=== PATIENT | male | born 1980 | race Caucasian/White ===

== ENCOUNTER 2020-09-19 11:23 | Emergency (ER) | payer BC, SELFPAY ==
[2020-09-19 11:35] VITALS: BP 122/70; PULSE 89; RESP 18; TEMP 36.7; O2SAT 100; BMI 41.8
--- NOTE | 2020-09-19 11:44 | HMH.EDUTC ---
[facility] Disposition Clinical Impression: Encounter for screening laboratory testing for COVID-19 virus Disposition: Home, Self-Care Condition on Discharge: Good Instructions: Preventing the Spread of Coronavirus Discharge Instructions Additional Instructions: *Monitor Temp, Over the counter Motrin or Tylenol as directed/as needed Tylenol every 4 hours and Motrin every 6 hours (as long as your family doctor has told you that you can take it) for fever or pain. and straight to ER if unable to lower temp less than 101.0 after medication given *Warm salt water gargles may help to soothe the throat *Throat Lozenges *Warm fluids like tea with honey may help to soothe the throat *Sleep elevated *Humidifier/Vaporizer Follow up IMMEDIATELY for new or worsening symptoms or no Noticeable improvement over the next 48-72 hours. 911 for difficulty breathing or swallowing You was tested for today for COVID19 your test result should be back later this evening, you may call back later this evening to see if your test results are back and the result You was given a handout with instructions for Self Quarantine and Self isolation for while you wait on test results and what to do if they are positive Referrals: Taylor Rashid APRN [Primary Care Provider] - As needed Forms: Work/School Release Time of Disposition: 11:46 Medical Decision Making - Alireza Inquiry Pt receiving controlled substance: No Alireza was queried for this patient: No Vital Signs: 09/19/20 11:35 Temperature 98.0 F Temperature Source Oral Pulse Rate [Radial] 89 Respiratory Rate 18 Blood Pressure [Right Arm] 122/70 Blood Pressure Mean [Right Arm] 87 Blood Pressure Source [Right Arm] Automatic Cuff Blood Pressure Position [Right Arm] Sitting 02 Sat by Pulse Oximetry 100 Oxygen Delivery Method Room Air Orders (Tests/Meds): ORDERS Category Date Time Status Covid-19 Nasal PCR ([facility]) Routine Lab 09/19/20 11:32 Ordered [facility] HPI - General Stated complaint: covid test Time Seen by Provider: 09/19/20 11:44 Mode of Arrival: Ambulatory Source of Information: Patient Limitations: No Limitations Description of Symptoms (Recalled from Triage Doc. by RN): covid test. no symptoms, no exposure HEENT Symptoms (Recalled from RN notes): No Resp Symptoms (Recalled from RN notes): No Skin Symptoms (Recalled from RN notes): No MS Symptoms (Recalled from RN notes): No Functional Status (Recalled from RN notes): wnl - History of Present Illness Provider Complaint: Patient states that he hasnt had any symptoms but wanted to get tested for COVID State that he has children at home and works in the public States that he came in today just for testing - Related Data Allergies Allergy/AdvReac Type Severity Reaction Status Date / Time No Known Allergies Allergy Unverified 11/06/17 14:09 - Worker's Comp Is this a Worker's Comp case?: No [facility] History - Hepatitis A Screen Drug use history?: No High risk sexual behaviors?: No History of sexually transmitted infection?: No Currently employed?: No Childcare worker?: No Do you have indoor plumbing?: Yes Do you have electricity?: Yes Attestation statement:: This patient has been screened for Hepatitis A risk factors. I have reviewed the patient's past medical history: Yes - Social History Alcohol Intake: never Occupational Status: employed ROS Obtained: Yes All systems reviewed & no additional complaints, Yes Systems reviewed as appropriate & no additional complaints - Constitutional Constitutional: Reports system reviewed and no additional complaints, except as docu, Denies body ache, Denies chills, Denies fever(s), Denies headache(s) - ENT Ears, Nose, Mouth, and Throat: Denies otalgia, Denies nasal congestion, Denies nasal discharge, Denies sinus pain, Denies sinus pressure, Denies sore throat - Cardiovascular Cardiovascular: Reports system reviewed and no additional complaints, except as docu - Re
[2020-09-19 12:04] VITALS: BP 122/70; PULSE 89; RESP 18; TEMP 36.7; O2SAT 100
== END 2020-09-19 12:05 | disposition home or self-care (01) ==
PROVIDERS: Emergency Provider Nurse Practitioner; PCP Nurse Practitioner Family
DX: Z20.828 Contact with and (suspected) exposure to other viral communicable diseases (principal)
CPT/HCPCS: 99201; U0003

== ENCOUNTER 2020-11-16 09:24 | Emergency (ER) | payer BC, SELFPAY ==
[2020-11-16 09:26] VITALS: BP 159/102; PULSE 68; RESP 18; TEMP 37.1; O2SAT 96; BMI 42.3
--- NOTE | 2020-11-16 09:31 | ECG_ITS ---
APPROVED REPORT Exam: Resting ECG HR:64 bpm ECG Measurements Heart Rate 64 AXES WY 196 P 22 QRSd 110 QRS -14 QT 398 T 14 QTc 410 Conclusion Normal sinus rhythm Incomplete right bundle branch block Minimal voltage criteria for LVH Late r wave progression Abnormal ECG Electronically signed by : Isidro Archer, 11/16/2020 19:52:50
--- NOTE | 2020-11-16 09:35 | HMH.EDGENADL ---
ED Disposition Clinical Impression: Diaphoresis Headache Qualifiers: Headache type: unspecified Headache chronicity pattern: acute headache Intractability: not intractable Qualified Code(s): R51.9 - Headache, unspecified Disposition: Home, Self-Care Condition on Discharge: Good Instructions: DI for Headache Additional Instructions: Additional instructions for HEADACHE: See your physician as soon as possible for further evaluation, call for appointment. Return immediately if worsening headache, vomiting, problems with vision or speech, fever, numbness or weakness of the extremities, neck pain or stiffness. Call back to the emergency department in 1 to 2 days to obtain your COVID-19 test result. Referrals: Macarena Scott APRN [Primary Care Provider] - Forms: Work/School Release - Critical Care Critical Care Time: No Attestation: On , the high probability of a clinically significant, sudden or life threatening deterioration of the following system(s) required my full and direct attention, intervention and personal management. The time I documented below is in addition to time spent performing reported procedures but includes the following listed in this critical care notation. Medical Decision Making - Alireza Inquiry Pt receiving controlled substance: No Vital Signs: 11/16/20 09:26 11/16/20 10:12 11/16/20 10:32 Temperature 98.8 F Temperature Source Oral Pulse Rate [Radial] 68 67 72 Respiratory Rate 18 18 18 Blood Pressure [Right Arm] 159/102 H 133/86 124/71 Blood Pressure Mean [Right Arm] 121 101 88 Blood Pressure Source [Right Arm] Automatic Cuff Automatic Cuff Blood Pressure Position [Right Arm] Sitting Sitting Sitting 02 Sat by Pulse Oximetry 96 96 95 Oxygen Delivery Method Room Air Room Air 11/16/20 11:38 Temperature Temperature Source Pulse Rate [Radial] 54 L Respiratory Rate 16 Blood Pressure [Right Arm] 138/88 Blood Pressure Mean [Right Arm] 104 Blood Pressure Source [Right Arm] Automatic Cuff Blood Pressure Position [Right Arm] Sitting 02 Sat by Pulse Oximetry 95 Oxygen Delivery Method - Lab Data Lab Results 11/16/20 09:40: WBC 6.9, RBC 5.17, Hgb 15.9, Hct 47.2, MCV 91.2, MCH 30.8, MCHC 33.8, RDW 13.6, Plt Count 178, MPV 8.5, Neut % (Auto) 78.8, Lymph % (Auto) 9.9 L, [place] % (Auto) 9.6 H, Eos % (Auto) 1.3, Baso % (Auto) 0.4, Neut # (Auto) 5.4, Lymph # (Auto) 0.7, [place] # (Auto) 0.7, Eos # (Auto) 0.1, Baso # (Auto) 0.0 11/16/20 09:40: Sodium 135 L, Potassium 3.9, Chloride 99, Carbon Dioxide 29, Anion Gap 10.9, BUN 10, Creatinine 0.90, Estimated Creat Clear 113, Estimated GFR 93, Est GFR ( Amer) 113, Glucose 146 H, Calcium 9.3, Total Bilirubin 0.8, AST 49, ALT 53, Alkaline Phosphatase 77, Troponin I < 0.01, Total Protein 7.2, Albumin 4.3, Globulin 2.9, Albumin/Globulin Ratio 1.5 11/16/20 10:25: Influenza Type A Ag Negative, Influenza Type B Ag Negative 11/16/20 11:10: Urine Color Yellow, Urine Appearance Clear, Urine pH 6.0, Ur Specific [place] 1.015, Urine Protein Negative, Urine Glucose (UA) Negative, Urine Ketones Negative, Urine Blood Negative, Urine Nitrate Negative, Urine Bilirubin Negative, Urine Urobilinogen 0.2, Ur Leukocyte Esterase Negative, Urine WBC 3-5, Ur Squamous Epith Cells Occasional Result diagrams: 11/16/20 09:40 11/16/20 09:40 Orders (Tests/Meds): ORDERS Category Date Time Status Covid-19 Nasal PCR Sendout P&C Stat Lab 11/16/20 10:25 Received - Radiology Data #1 Image(s): Chest Image Reviewed: Yes I reviewed the patient's radiology image Preliminary Findings: Normal/NAD - CT Data CT Scan: Head Time Received: 10:[address] Reviewed: Yes: I have viewed the radiologist's interpretation Findings Narrative: PROCEDURE: CT HEAD/BRAIN WO CON Referring Doctor: Brooks Chawla Patient Age:39Y CLINICAL INDICATION: headache severe headache but tiny eyes since this morning with nausea. Sweating. . No lesions COMPARISO
--- NOTE | 2020-11-16 09:48 | CT_ITS ---
PROCEDURE: CT HEAD/BRAIN WO CON Referring Doctor: Karthikshareekendal Brooks Patient Age:39Y CLINICAL INDICATION: headache severe headache but tiny eyes since this morning with nausea. Sweating. . No lesions COMPARISON: No exams were available for comparison TECHNIQUE: No IV contrast: Standard axial images were obtained. All CT scans at the facility use one or more dose reduction, viz: automated exposure control, ma/kV adjustment per patient size (including targeted exams where dose is matched to indication, i.e. head), or iterative reconstruction technique. FINDINGS: No acute intracranial findings. No intracranial hemorrhage. No hydrocephalus.The ventricles and basal cisterns appear clear and satisfactory. No mass or midline shift nor mass effect. No subdural or extra-axial fluid collection is evident. Posterior fossa unremarkable. Skull intact- calvarium unremarkable appearance. Nomastoid effusions. Mastoid air cells are well developed and clear. Middle ear clear. IAC's symmetric. Mild to moderate cerumen at the external auditory canal bilaterally Paranasal sinuses with only some minor mucosal thickening in ethmoid air cells. Otherwise sphenoid frontal and visualized portions of maxillary sinuses are clear. No air-fluid levels. Additionally note engorgement of nasal turbinates bilaterally with prominent deviation nasal septum to the right ... IMPRESSION: No acute intracranial findings Scant mucosal thickening ethmoid air cells.-Otherwise paranasal sinuses clear Dictated by: Gabriel Aguilar MD 11/16/2020 10:26 Gabriel Aguilar MD in [place] 11/16/2020 10:26
[2020-11-16 10:08] LABS: Chloride 99 mmol/L (98-107); Potassium 3.9 mmoL/L (3.5-5.1); Sodium 135 mmol/L (136-145)
[2020-11-16 10:09] LABS: Basophils % 0.4 % (0.1-2.0); Eosinophils # 0.1 K/mm3 (0.0-0.4); Eosinophils % 1.3 % (0.1-12.0); Hematocrit 47.2 % (42.0-52.0); Hemoglobin 15.9 g/dL (14.1-18.0); Lymphocytes # 0.7 K/mm3 (0.7-4.5); Lymphocytes % 9.9 % (10-50); Mean Corpuscular HGB Conc 33.8 g/dL (31.8-35.4); Mean Corpuscular Hemoglobin 30.8 pg (27.0-31.2); Mean Corpuscular Volume 91.2 fl (80-94); Mean Platelet Volume 8.5 fl (7.4-10.4); Monocytes # 0.7 K/mm3 (0.1-1.0); Monocytes % 9.6 % (1.7-9.3); Neutrophils # 5.4 K/mm3 (1.8-7.8); Neutrophils % 78.8 % (37.0-80.0); Platelet Count 178 K/mm3 (142-424); Red Blood Count 5.17 M/mm3 (4.60-6.20); Red Cell Distribution Width 13.6 % (11.5-17.5); White Blood Count 6.9 K/mm3 (4.8-10.8)
[2020-11-16 10:11] LABS: Alanine Aminotransferase 53 U/L (12-78); Albumin Level 4.3 g/dl (3.5-5.0); Albumin/Globulin Ratio 1.5 (1.1-1.8); Alkaline Phosphatase 77 U/L (38-126); Anion Gap 10.9 mEq/L (5-15); Aspartate Amino Transferase 49 U/L (17-59); Bilirubin,Total 0.8 mg/dl (0.2-1.3); Blood Urea Nitrogen 10 mg/dl (9-20); Calcium 9.3 mg/dl (8.4-10.2); Carbon Dioxide 29 mmol/L (22.0-30.0); Creatinine Clearance Estimated 113 mL/min (50-200); Estimated Glomerular Filt Rate 93 ml/min (>60); GFR (African American) 113 ML/MIN (>60); Globulin 2.9 g/dL (1.3-3.2); Glucose 146 mg/dl (74-100); Total Protein,Serum 7.2 g/dl (6.3-8.2)
[2020-11-16 10:12] VITALS: BP 133/86; PULSE 67; RESP 18; O2SAT 96
[2020-11-16 10:24] LABS: Troponin I < 0.01 ng/ml (0.00-0.034)
[2020-11-16 10:32] VITALS: BP 124/71; PULSE 72; RESP 18; O2SAT 95
--- NOTE | 2020-11-16 10:39 | XR_ITS ---
PROCEDURE: XR CHEST 2V Referring Doctor: Brooks Chawla Patient Age:39Y CLINICAL HISTORY: sweating chest discomfort COMPARISON: No exams were available for comparison FINDINGS: PA and lateral chest, no previous studies for comparison Lungs are well expanded and overall clear with no definitive area of infiltrate or consolidation. Upper normal markings towards right base of the within normal limits. Overall he lungs are clear without infiltrates, suspicious nodules, or pleural effusions. The cardiomediastinal silhouette and pulmonary vascularity are within normal limits. No acute bony abnormalities. Ribs and T-spine intact but IMPRESSION: Nothing definitely acute Dictated by: Gabriel Aguilar MD 11/16/2020 11:29 Gabriel Aguilar MD in [place] 11/16/2020 11:29
[2020-11-16 11:13] LABS: Microscopic, Urine URINE MICROSCOPIC (MICROSCOPIC)
[2020-11-16 11:33] LABS: Appearance,Urine Clear (Clear); Bilirubin,Urine Negative (Negative); Blood, Urine Negative (Negative); Color,Urine Yellow (Yellow); Glucose,Urine (UA) Negative (Negative); Ketones,Urine Negative (Negative); Leukocyte Esterase,Urine Negative (Negative); Nitrate,Urine Negative (Negative); Protein,Urine Negative (Negative); Specific Gravity, Urine 1.015 (1.005-1.030); Urobilinogen,Urine 0.2 EU/dl (0.2)
[2020-11-16 11:34] LABS: Squamous Epithelial Cell,Urine Occasional #/hpf (0-5)
[2020-11-16 11:38] VITALS: BP 138/88; PULSE 54; RESP 16; O2SAT 95
[2020-11-16 11:54] VITALS: BP 135/65; PULSE 72; RESP 16; TEMP 36.6; O2SAT 98
[2020-11-17 09:08] LABS: Covid-19 Nasal PCR Sendout P&C POSITIVE
== END 2020-11-16 11:56 | disposition home or self-care (01) ==
PROVIDERS: Emergency Provider Emergency Medicine; PCP Nurse Practitioner
DX: R61 Generalized hyperhidrosis (principal); R51.9 Headache, unspecified; I10 Essential (primary) hypertension; E03.9 Hypothyroidism, unspecified
CPT/HCPCS: 70450; 71046; 80053; 81001; 84484; 85025; 87275; 87276; 93005; 99284; U0004

== ENCOUNTER 2023-11-28 11:24 | Emergency (ER) | payer BC, SELFPAY ==
[2023-11-28 12:00] VITALS: BP 132/87; PULSE 66; RESP 18; TEMP 36.6; O2SAT 97; BMI 40.8
--- NOTE | 2023-11-28 12:17 | ED_ITS ---
Discharge Plan Disposition Patient Disposition: Home, Self-Care Condition: Good Prescriptions Prescriptions: New methocarbamol 500 mg tablet 500 mg PO TID PRN (Reason: muscle spasm) Qty: 15 0RF No Action metoprolol succinate 50 MG tablet extended release 24 hr 50 mg PO DAILY levothyroxine 25 MCG tablet 25 mcg PO DAILY buprenorphine-naloxone 8-2 mg tablet, sublingual 2 tab SUBLINGUAL DAILY Referrals Follow up/Referrals: Macarena Scott APRN [Primary Care Provider] - See instructions Activity Restrictions/Add. Instructions Additional Instructions/Restrictions: *Over the counter Ibuprofen hortencia 6 hours with meal as needed for pain/inflammation *Not additional anti-inflammatory like motrin, aleve, advil with the above amount of ibuprofen. You can still take Tylenol every 4 hours as needed if you need something else for pain *Ice 20 minutes every 2 hours for the first 48 hours after the initial injury followed by moist heat every 20 minutes 3-4 times a day to affected area *Muscle relaxer every 8 hours as needed for muscle spasms but remember, it WILL cause drowsiness You cannot take it and drive, operate machinery Work or care for small children. *Keep this area active, no movement leads to more stiffness, However take it easy and avoid heavy lifting pushing or pulling *Follow up with you family doctor if no improvement for further treatment Clinical Impressions Clinical Impression: Low back pain Qualifiers: Chronicity: unspecified Back pain laterality: right Sciatica presence: without sciatica Qualified Code(s): M54.50 - Low back pain, unspecified Stand Alone Forms Stand Alone Forms: Work/School Release Instructions Patient Instructions: DI for Low Back Pain, Low Back Pain Discharge ED Provider: Cindy Ballard [facility] General Stated complaint: right back pain Time Seen by Provider: 11/28/23 12:17 History of Present Illness Provider Complaint: Patient states that he has been having achy like pain in his right lower back for a couple weeks that is worse with movement at times States that he does do alot of heavy lifting at work not sure if he may have pulled something Denies radiation of pain Denies urinary symptoms and denies loss of control of bowel or bladder Related Data Home Medications Medication Instructions Recorded Confirmed levothyroxine 25 mcg tablet 25 mcg PO DAILY unknown 11/16/20 11/28/23 metoprolol succinate 50 mg 50 mg PO DAILY Hypertension 11/16/20 11/28/23 tablet,extended release 24 hr buprenorphine 8 mg-naloxone 2 mg 2 tab sublingual DAILY addicition 11/28/23 11/28/23 sublingual tablet Previous Rx's Medication Instructions Recorded methocarbamol 500 mg tablet 500 mg PO TID PRN muscle spasm #15 11/28/23 tabs Allergies Allergy/AdvReac Type Severity Reaction Status Date / Time No Known Allergies Allergy Verified 11/28/23 12:23 [facility] Disclaimer: The information contained in this section may have been updated after the patient was seen, as this information can be updated by other users. Social History Smoking Status: Unknown if ever smoked alcohol intake: never current occupational status: employed Travel in the last 8 weeks: None ROS Obtained: Yes All systems reviewed & no additional complaints except as documented and Yes Systems reviewed as appropriate & no additional complaints except as documented Constitutional Constitutional: Reports system reviewed and no additional complaints, except as documented, Reports as per HPI and Denies fever(s) ENT Ears, Nose, Mouth, and Throat: Reports system reviewed and no additional complaints, except as documented and Reports as per HPI Cardiovascular Cardiovascular: Reports system reviewed and no additional complaints, except as documented and Reports as per HPI Respiratory Respiratory: Reports system reviewed and no additional complaints, except as documented and Reports as per HPI Gastrointestinal Gastrointestingal: Reports system reviewed and no additional complaints, except as documented; Denies abdominal pain Genitourinary Male Genitourinary: Reports system reviewed and no additional complaints, except as documented, Reports as per HPI, Denies difficulty urinating, Denies genital pain, Denies hematuria, Denies urinary frequency and Denies urinary urgency Musculoskeletal Musculoskeletal: Reports system reviewed and no additional complaints, except as documented, Reports as per HPI and Reports back pain Physical Exam General General appearance: alert and in no apparent distress ENT ENT exam: Present mucous membranes moist Respiratory Respiratory exam: Present normal lung sounds bilaterally; Absent respiratory distress or wheezes Cardiovascular Cardiovascular exam: Present regular rate, normal rhythm and normal heart sounds Abdominal Exam Abdominal exam: Present soft and normal bowel sounds; Absent distention or ten derness Back Exam Back exam: Present tenderness and muscle spasm Back 1 view image: 1. reports achy like feeling on and off for several weeks worse with movement and feels like it catches and then spasms Denies radiation of pain and denies loss of control of bowel or bladder Neurological Exam Neurological exam: Present alert, oriented X3 and normal gait Medical Decision Making Alireza Inquiry Pt receiving controlled substance: No Alireza was queried for this patient: No
[2023-11-28 12:28] LABS: Apearance,Urine Clear (Clear); Bilirubin,Urine Negative (Negative); Blood, Urine Negative (Negative); Color,Urine Yellow (Yellow); Glucose,Urine (UA) Negative (Negative); Ketones,Urine Negative (Negative); PH,Urine 7.5 (5.0-8.5); Protein,Urine Negative (Negative); UTC Leukocyte Esterase,Urine Negative (Negative); Urobilinogen,Urine 0.2 EU/dl (0.2)
[2023-11-28 12:29] LABS: UTC Nitrate,Urine Negative (Negative)
[2023-11-28 12:44] VITALS: BP 132/87; PULSE 66; RESP 18; TEMP 36.6; O2SAT 97
== END 2023-11-28 12:44 | disposition home or self-care (01) ==
PROVIDERS: Emergency Provider Nurse Practitioner; PCP Nurse Practitioner
DX: M54.50 Low back pain, unspecified (principal)
CPT/HCPCS: 81003; 99204; 99212; G0463

== ENCOUNTER 2023-12-19 19:48 | Emergency (ER) | payer BC, SELFPAY ==
[2023-12-19 19:49] VITALS: BP 149/94; PULSE 70; RESP 18; TEMP 36.8; O2SAT 97; BMI 40.4
--- NOTE | 2023-12-19 20:07 | PC.NURSE ---
in room talking with patient at this time.
--- NOTE | 2023-12-19 20:15 | HMH.EDGENADL ---
Discharge Plan Disposition Patient Disposition: Home, Self-Care Prescriptions Prescriptions: New prednisone 20 mg tablet 40 mg PO DAILY 5 Days Qty: 10 0RF lidocaine 5 % adhesive patch,medicated 1 patch topical DAILY Qty: 30 0RF Rx Instructions: leave on most painful area for up to 12 hrs No Action metoprolol succinate 50 MG tablet extended release 24 hr 50 mg PO DAILY levothyroxine 25 MCG tablet 25 mcg PO DAILY buprenorphine-naloxone 8-2 mg tablet, sublingual 2 tab SUBLINGUAL DAILY methocarbamol 500 mg tablet 500 mg PO TID PRN (Reason: muscle spasm) Qty: 15 0RF Referrals Follow up/Referrals: Macarena Scott APRN [Primary Care Provider] - See instructions Activity Restrictions/Add. Instructions Additional Instructions/Restrictions: Call your family doctor to establish care for this visit to the emergency department and schedule follow-up within 48 hours to ensure improvement. If you have any worsening of your condition or any other concerning signs or symptoms, return to the emergency department or your primary care doctor for further evaluation. Prednisone every morning with food and water to prevent stomach upset and kidney damage. Take Tylenol 1000 mg every 6 hours (4 times daily) and ibuprofen 400 mg every 6 hours (4 times daily) as needed with food and water to prevent GI upset and kidney damage. Clinical Impressions Clinical Impression: Acute lumbar radiculopathy Discharge ED Provider: Osman Choudhary General Adult HPI General Chief complaint: PAIN Stated complaint: back pain, no accident Time Seen by Provider: 12/19/23 19:57 Mode of Arrival: Ambulatory Source of Information: Patient Limitations: No Limitations Description of Symptoms (Recalled from ER Triage Doc. 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 3 weeks ago and told possible kidney stone but stated only had urine tested. does note to have pain that started 15 minutes after eating dinner tonight and states that pain is in lower back but seems to be around RLQ of abd as well History of Present Illness HPI narrative: 39-year-old presenting with atraumatic back pain. Patient states that he lifts heavy objects for his job. He has had pain on and off for about 3 weeks. It is made worse with twisting, turning, and position changes. He states that he feels the pain started in his back and radiate anteriorly into his groin and sometimes it starts in his groin and radiates posteriorly into his back. No hematuria or dysuria. Patient had urinalysis done since this time and it was normal. No pain or discomfort at rest. Was given muscle relaxer, but no other medications. Related Data Home Medications Medication Instructions Recorded Confirmed levothyroxine 25 mcg tablet 25 mcg PO DAILY unknown 11/16/20 11/28/23 metoprolol succinate 50 mg 50 mg PO DAILY Hypertension 11/16/20 11/28/23 tablet,extended release 24 hr buprenorphine 8 mg-naloxone 2 mg 2 tab sublingual DAILY addicition 11/28/23 11/28/23 sublingual tablet Previous Rx's Medication Instructions Recorded methocarbamol 500 mg tablet 500 mg PO TID PRN muscle spasm #15 11/28/23 tabs lidocaine 5 % topical patch 1 patch topical DAILY #30 ea 12/19/23 prednisone 20 mg tablet 40 mg PO DAILY 5 days #10 tabs 12/19/23 Allergies Allergy/AdvReac Type Severity Reaction Status Date / Time No Known Allergies Allergy Verified 11/28/23 12:23 [facility] Disclaimer: The information contained in this section may have been updated after the patient was seen, as this information can be updated by other users. Social History (Updated 11/28/23 @ 12:35 by Cindy Ballard APRN) Smoking Status: Former smoker alcohol intake: never current occupational status: employed Travel in the last 8 weeks: None ROS Obtained: Yes All systems reviewed & no additional complaints except as documented Physical Exam General General appearance: alert and in no apparent distress Head Head exam: atraumatic and normocephalic Eye Eye exam: Present normal appearance, PERRL and EOMI ENT ENT exam: Present mucous membranes moist Neck Neck exam: Present normal inspection, full ROM and trachea midline Respiratory Respiratory exam: Absent respiratory distress, wheezes, stridor, accessory muscle use or prolonged expiratory phase Cardiovascular Cardiovascular exam: Present normal rhythm Abdominal Exam Abdominal exam: Present soft; Absent distention, tenderness, guarding, rebound or rigidity Extremities Exam Extremities exam: Absent edema Neurological Exam Neurological exam: Present alert, oriented X3, CN II-XII intact and normal gait; Absent motor sensory deficit Skin Skin exam: Present warm and dry; Absent diaphoresis or erythema Medical Decision Making Medical Records Medical records reviewed: Yes I reviewed the patient's medical records. Alireza Inquiry Pt receiving controlled substance: No Alireza was queried for this patient: No Vital Signs: 12/19/23 19:49 12/19/23 20:28 Temperature 98.2 F 98 F Temperature Source Oral Pulse Rate 72 Pulse Rate [Right Brachial] 70 Respiratory Rate 18 18 Blood Pressure 139/82 Blood Pressure [Right Arm] 149/94 H Blood Pressure Mean [Right Arm] 112 02 Sat by Pulse Oximetry 97 Oxygen Delivery Method Room Air Room Air Orders (Tests/Meds): ED MEDICATIONS Discontinued Medications Generic Name Dose Route Start Last Admin Trade Name Robert PRN Reason Stop Dose Admin Dexamethasone 10 mg 12/19/23 20:11 12/19/23 20:21 Dexamethasone 4mg Tablet PO 12/19/23 20:12 10 mg ONCE ONE Administration Lidocaine 1 each 12/19/23 20:11 12/19/23 20:21 Lidocaine 5% Transdermal Patch TP 12/19/23 20:12 1 each ONCE ONE Administration Medical Decision Narrative: 39-year-old presenting with atraumatic back pain. Patient states that he lifts heavy objects for his job. He has had pain on and off for about 3 weeks. It is made worse with twisting, turning, and position changes. He states that he feels the pain started in his back and radiate anteriorly into his groin and sometimes it starts in his groin and radiates posteriorly into his back. No hematuria or dysuria. Patient had urinalysis done since this time and it was normal. No pain or discomfort at rest. Was given muscle relaxer, but no other medications. History was obtained via conversation with patient. On arrival, patient hemodynamically stable, alert, oriented x4, appropriate, GCS 15, moving all extremities spontaneously, pupils equal and reactive to light. Full physical exam performed and significant for very well-appearing. No evidence of midline spinal tenderness or deformity. No exacerbation of pain with flank percussion or abdominal palpation. No overlying skin changes. Neurologically intact. Differential includes radiculopathy, nephrolithiasis, hernia, aortic pathology, among others. Patient was given lidocaine patch and Decadron for symptomatic management and correction of underlying abnormalities. Hematologic workup as well as spinal imaging including CT was considered, but deemed unnecessary due to well-appearing male who has positional pain which is intermittent. Low likelihood that this is hernia, nephrolithiasis, or other pathology with waxing and waning history. Given patient presentation, workup, history, this most likely represents lumbar radiculopathy. Because patient at baseline without signs or symptoms of clinical decompensation, deemed appropriate for discharge. Results were relayed to patient who voiced understanding and were agreeable to outpatient management and follow up. At the time of discharge the patient was hemodynamically stable, tolerating PO, and mobilizing appropriately. Critical Care Critical Care Time Critical Care Time: No
[2023-12-19] MEDS: LIDOCAINE 5% TRANSDERMAL PATCH 1 EACH TP (20:21)
[2023-12-19] MEDS: DEXAMETHASONE 4MG TABLET 10 MG PO (20:21)
[2023-12-19 20:28] VITALS: BP 139/82; PULSE 72; RESP 18; TEMP 36.6; O2SAT 97
== END 2023-12-19 20:31 | disposition home or self-care (01) ==
PROVIDERS: Emergency Provider Emergency Medicine; PCP Nurse Practitioner
DX: M54.16 Radiculopathy, lumbar region (principal); R10.31 Right lower quadrant pain; Z87.891 Personal history of nicotine dependence; X50.0XXA Overexertion from strenuous movement or load, initial encounter
CPT/HCPCS: 99283

== ENCOUNTER 2024-08-30 12:16 | Emergency (ER) | payer BC, SELFPAY ==
[2024-08-30 12:17] VITALS: BP 141/90; PULSE 70; RESP 18; TEMP 36.4; O2SAT 98; BMI 40.4
--- NOTE | 2024-08-30 12:35 | ED_ITS ---
Discharge Plan Disposition Patient Disposition: Home, Self-Care Condition: Good Prescriptions Prescriptions: New prednisone 20 mg tablet 40 mg PO DAILY 3 Days Qty: 6 0RF methocarbamol 750 mg tablet 750 mg PO Q8H PRN (Reason: pain) Qty: 20 0RF No Action metoprolol succinate 50 MG tablet extended release 24 hr 50 mg PO DAILY levothyroxine 25 MCG tablet 25 mcg PO DAILY buprenorphine-naloxone 8-2 mg tablet, sublingual 2 tab SUBLINGUAL DAILY methocarbamol 500 mg tablet 500 mg PO TID PRN (Reason: muscle spasm) Qty: 15 0RF prednisone 20 mg tablet 40 mg PO DAILY 5 Days Qty: 10 0RF lidocaine 5 % adhesive patch,medicated 1 patch topical DAILY Qty: 30 0RF Rx Instructions: leave on most painful area for up to 12 hrs Referrals Follow up/Referrals: Macarena Scott APRN [Primary Care Provider] - See instructions Activity Restrictions/Add. Instructions Additional Instructions/Restrictions: You were evaluated in the emergency department today. At this time, it is felt that you have sciatica. 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 You may also take Tylenol every 4-6 hours at home as needed for pain as well as ibuprofen every 6-8 hours at home as needed. Follow- up closely with your primary care provider for reassessment. Return to the emergency department right away for new or worsening symptoms, such as significant worsening of pain, numbness or tingling in your groin, incontinence, or inability to urinate. Clinical Impressions Clinical Impression: Acute low back pain with sciatica Stand Alone Forms Stand Alone Forms: Work/School Release Instructions Patient Instructions: DI for Back Pain With Sciatica Print Language Print Language: Dutch Discharge ED Provider: Amanda Delgado General Adult HPI General Chief complaint: PAIN Stated complaint: leg and back pain Time Seen by Provider: 08/30/24 12:20 Mode of Arrival: Ambulatory Source of Information: Patient Limitations: No Limitations Description of Symptoms (Recalled from ER Triage Doc. by RN): Patient presents to ED with right lower back pain that shoots down his right side to his right leg. Patient rates pain 6/10 and describes it as numbness at times. Patient states pain has been 3-4 days. History of Present Illness HPI narrative: This patient is a 43-year-old male with a history of obesity presenting to the emergency department for evaluation with concern for low back pain radiating down his right leg. He states that he has shooting pains down the posterior aspect of his right leg. No numbness, tingling, saddle anesthesia, incontinence, urinary retention, or other concerns. No recent falls or traumatic injuries. No fevers or other infectious symptoms. On medical record review, he was seen for this back in November. He notes that steroids helped at that time. Related Data Home Medications ?Medication ?Instructions ?Recorded ?Confirmed levothyroxine 25 mcg tablet 25 mcg PO DAILY unknown 11/16/20 11/28/23 metoprolol succinate 50 mg 50 mg PO DAILY Hypertension 11/16/20 11/28/23 tablet,extended release 24 hr buprenorphine 8 mg-naloxone 2 mg 2 tab sublingual DAILY addicition 11/28/23 11/28/23 sublingual tablet Previous Rx's ?Medication ?Instructions ?Recorded methocarbamol 500 mg tablet 500 mg PO TID PRN muscle spasm #15 11/28/23 tabs lidocaine 5 % topical patch 1 patch topical DAILY #30 ea 12/19/23 prednisone 20 mg tablet 40 mg (2 x 20 mg) PO DAILY 5 days 12/19/23 #10 tabs methocarbamol 750 mg tablet 750 mg PO Q8H PRN pain #20 tabs 08/30/24 prednisone 20 mg tablet 40 mg (2 x 20 mg) PO DAILY 3 days 08/30/24 #6 tabs Allergies Allergy/AdvReac Type Severity Reaction Status Date / Time No Known Allergies Allergy Verified 11/28/23 12:23 [facility] Disclaimer: The information contained in this section may have been updated after the patient was seen, as this information can be updated by other users. Social History Smoking Status: Current every day smoker alcohol intake: never current occupational status: employed Travel in the last 8 weeks: None Other Medical History Have you received the Flu Vaccine for this season: No Have you received the Pneumonia Vaccine: No ROS Obtained: Yes All systems reviewed & no additional complaints except as documented Physical Exam General General appearance: alert and in no apparent distress Head Head exam: atraumatic and normocephalic Eye Eye exam: Present normal appearance, PERRL and EOMI ENT ENT exam: Present normal exam, normal oropharynx, mucous membranes moist and normal external ear exam Neck Neck exam: Present normal inspection, full ROM and trachea midline; Absent tenderness Chest Chest inspection: Present normal inspection and symmetric chest wall rise; Absent tenderness Respiratory Respiratory exam: Present normal lung sounds bilaterally; Absent respiratory distress, wheezes, stridor or accessory muscle use Cardiovascular Cardiovascular exam: Present regular rate and normal rhythm Abdominal Exam Abdominal exam: Present soft; Absent distention, tenderness or guarding Extremities Exam Extremities exam: Present normal inspection, full ROM and normal capillary refill; Absent tenderness or edema Back Exam Back exam: Present normal inspection and full ROM; Absent tenderness Neurological Exam Neurological exam: Present alert, oriented X3, CN II-XII intact and normal gait; Absent motor sensory deficit Psychiatric Psychiatric exam: Present normal affect and normal mood Skin Skin exam: Present warm and dry Medical Decision Making Medical Records Medical records reviewed: Yes I reviewed the patient's medical records. Screening: Per USPSTF and CDC recommendations, given the prevalence of disease in our region, it is our hospital?s policy to screen for HIV and viral Hepatitis for all patients aged 18 and over and those with ongoing risk factors. Alireza Inquiry Pt receiving controlled substance: No Vital Signs: 08/30/24 12:17 Temperature 97.5 F L Temperature Source Oral Pulse Rate [Right Brachial] 70 Respiratory Rate 18 Blood Pressure [Right Arm] 141/90 H Blood Pressure Mean [Right Arm] 107 Blood Pressure Source [Right Arm] Automatic Cuff Blood Pressure Position [Right Arm] Supine 02 Sat by Pulse Oximetry 98 Oxygen Delivery Method Room Air Lab Data Lab results reviewed: Yes I reviewed the patient's lab results. Orders (Tests/Meds): ED MEDICATIONS Discontinued Medications Generic Name Dose Route Start Last Admin Trade Name Robert PRN Reason Stop Dose Admin Acetaminophen 1,000 mg 08/30/24 12:31 08/30/24 12:37 Acetaminophen 500mg Tab PO 08/30/24 12:32 1,000 mg ONCE ONE Administration Ketorolac Tromethamine 30 mg 08/30/24 12:31 08/30/24 12:36 Ketorolac 30mg/Ml Vial IM 08/30/24 12:32 30 mg ONCE ONE Administration Lidocaine 1 each 08/30/24 12:31 08/30/24 12:37 Lidocaine 5% Transdermal Patch TP 08/30/24 12:32 1 each ONCE ONE Administration Methocarbamol 500 mg 08/30/24 12:32 08/30/24 12:37 Methocarbamol 500mg Tablet PO 08/30/24 12:33 500 mg ONCE ONE Administration Prednisone 40 mg 08/30/24 12:31 08/30/24 12:36 Prednisone 20mg Tab PO 08/30/24 12:32 40 mg ONCE ONE Administration Medical Decision Narrative: In summary, this patient is a 43-year-old male presenting to the Emergency Department for evaluation of low back pain radiating down his right leg. Differential diagnoses considered include but are not limited to disc herniation, sciatica, lumbar radiculopathy, musculoskeletal strain/sprain. Ruling out the most morbid conditions drove assessment. It should be noted patient's history includes obesity which is not at goal therapy. This complicates all aspects of care by increasing patient's risk for morbidity. I reviewed patient's past medical records and noted previous evaluation back in November for similar issues. He notes his symptoms resolved after treatment with steroids.. On exam, the patient ambulates without significant issue and is neurologically intact. He has no alarm findings or symptoms concerning for spinal cord compression or cauda equina syndrome. He also has no alarm findings such as unintentional weight loss, fevers, or constitutional symptoms. I feel he most likely has sciatica. I considered obtaining imaging such as CT scan however in absence of acute traumatic injury this is unlikely to yield any helpful information. After shared decision-making with the patient, decision made to treat symptomatically and discharged to follow-up closely with primary care. He was given IM Toradol, oral Tylenol, oral Robaxin, oral prednisone, and topical Lidoderm patch for symptomatic improvement. Ultimately, he was deemed to be appropriate for discharge home with close follow-up with his primary care provider. He was given prescriptions for Robaxin and prednisone as well as strict return precautions and instructions for follow-up. He was discharged after all questions were answered Critical Care Critical Care Time Critical Care Time: No
[2024-08-30] MEDS: predniSONE 20MG TAB 40 MG PO (12:36)
[2024-08-30] MEDS: KETOROLAC 30MG/ML VIAL 30 MG IM (12:36)
[2024-08-30] MEDS: LIDOCAINE 5% TRANSDERMAL PATCH 1 EACH TP (12:37)
[2024-08-30] MEDS: METHOCARBAMOL 500MG TABLET 500 MG PO (12:37)
[2024-08-30] MEDS: ACETAMINOPHEN 500MG TAB 1000 MG PO (12:37)
[2024-08-30 12:39] VITALS: BP 140/84; PULSE 64; RESP 18; TEMP 36.4; O2SAT 98
== END 2024-08-30 12:40 | disposition home or self-care (01) ==
PROVIDERS: Emergency Provider Emergency Medicine; PCP Nurse Practitioner
DX: M54.40 Lumbago with sciatica, unspecified side; M79.604 Pain in right leg; R20.2 Paresthesia of skin
CPT/HCPCS: 96372; 99282; J1885